=== PATIENT | male | born 1990 | race Caucasian/White ===

== ENCOUNTER → 2017-07-02 | Outpatient (CLI) | payer OTHER ==
--- NOTE | 2017-07-02 18:20 | REP ---
CT scan left ankle without contrast: History: Pain and swelling. Sprain. Question talar fracture. Technique: Helical scanning is acquired. Axial images are reformatted. Coronal and sagittal multiplanar re-formation images are also generated reviewed. CT findings: Tibial plafond and talar dome are intact. No talar or other fracture is seen. There is a bone island in the distal fibula. Ankle mortise is intact. No erosive changes seen. Impression: No fracture or other acute bony abnormality. Signed by Beto Clark MD 07/03/2017 07:59 A
--- NOTE | 2017-07-02 18:28 | REP ---
CT left foot without contrast: History: Pain and swelling left foot. Sprain. Question talar fracture. Technique: Helical scanning is acquired. Axial images are reformatted. Coronal and sagittal multiplanar re-formation images are generated and reviewed. CT findings: There is no evidence of tarsal bone fracture or tarsal coalition. No malalignment is seen. Metatarsals appear intact. No phalangeal fracture is appreciated. No ankle fracture is seen. Impression: No fracture or other acute abnormality seen. Signed by Beto Clark MD 07/03/2017 07:59 A
== END ==
LOC: M RAD 12:11
PROVIDERS: ATTEND Orthopaedic Surgery
DX: S93.602A Unspecified sprain of left foot, initial encounter (principal); X58.XXXA Exposure to other specified factors, initial encounter; Y92.89 Other specified places as the place of occurrence of the external cause; Y99.9 Unspecified external cause status; Y93.9 Activity, unspecified

== ENCOUNTER 2020-08-30 16:15 | Emergency (ER) | payer OTHER ==
[~2020-08-30] VITALS: Ht 170.2 cm; Wt 61.1 kg
--- NOTE | 2020-08-30 17:46 | REP ---
INDICATION: beam fell onto wrist, numbness up to armpit COMPARISON: None. TECHNIQUE: Four views obtained. FINDINGS: Four views of the left wrist demonstrate no evidence of acute fracture, dislocation, or intrinsic bone disease. Tiny radiodensity in the soft tissues lateral to the distal radius may be located on or just beneath the skin. IMPRESSION: No fracture or dislocation. Tiny radiodensity in the soft tissues lateral to the distal radius may be located on or just beneath the skin. <Electronically signed by Mundo Gonzales > 08/30/20 [id number]
--- NOTE | 2020-08-30 17:48 | REP ---
INDICATION: beam fell onto wrist, numbness up to armpit COMPARISON: None. TECHNIQUE: Four views obtained. FINDINGS: Four views of the left hand demonstrate no evidence of acute fracture, dislocation, or intrinsic bone disease. Tiny radiodensity in the soft tissues lateral to the distal radius may be located just beneath or on the skin. IMPRESSION: No fracture or dislocation. <Electronically signed by Mundo Gonzales > 08/30/20 [id number]
[2020-08-30 18:50] VITALS: BP 115/64
--- NOTE | 2020-08-31 08:59 | REP ---
INDICATION: beam fell onto wrist, numbness and pain up into armpit. Repeat dictation. Preliminary report is provided at the time of the exam by yael BRADSHAW. COMPARISON: None. TECHNIQUE: Duplex venous scanning left upper extremity. FINDINGS: The left internal jugular, axillary, brachial, basilic, and cephalic veins are anechoic and compressible in the left upper extremity. Color flow imaging is homogeneous. Spectral Doppler interrogation is unremarkable. There is no evidence of left upper extremity venous thrombosis. IMPRESSION: Negative left upper extremity duplex venous ultrasound. No evidence of venous thrombosis. <Electronically signed by Juan Diego Clark > 08/31/20 [id number]
== END 2020-08-30 18:59 | disposition home or self-care (01) ==
LOC: M ED 16:15
DX: R20.2 Paresthesia of skin (principal); S59.902A Unspecified injury of left elbow, initial encounter; X58.XXXA Exposure to other specified factors, initial encounter; Y92.89 Other specified places as the place of occurrence of the external cause; F17.210 Nicotine dependence, cigarettes, uncomplicated